=== PATIENT | male | born 2000 | race Caucasian/White ===

== ENCOUNTER 2023-11-02 12:13 | Emergency (ER) | payer BC, OTHER ==
[~2023-11-02] VITALS: Ht 190.5 cm; Wt 110.0 kg
[2023-11-02 13:10] LABS: Basophils # (auto) 0.1 10 ^3/uL (0-0.2); Basophils % (auto) 0.6 % (0.0-2.0); Eosinophils # (auto) 0.3 10 ^3/uL (0-0.8); Hematocrit 43.6 % (41.0-53.0); Hemoglobin 15.3 g/dL (13.5-17.5); Lymphocytes # (auto) 1.6 10 ^3/uL (0.4-5.4); Lymphocytes % (auto) 18.4 % (10.0-50.0); Mean Corpuscular Hemoglobin 30.6 pg (28.0-32.0); Mean Corpuscular Volume 87.3 fL (80.0-100.0); Monocytes # (auto) 0.7 10 ^3/uL (0-1.3); Monocytes % (auto) 7.7 % (0.0-12.0); Neutrophils % (auto) 70.3 % (37.0-80.0); Red Blood Cells 4.99 10^6/uL (4.5-5.90); Red Cell Distribution Width 13.3 % (11.8-14.3); White Blood Cell 8.5 10^3/uL (4.4-10.8)
[2023-11-02 13:18] LABS: Chloride 104 mmol/L (98-107); Potassium 4.2 mmol/L (3.5-5.1); Sodium 137 mmol/L (136-145)
[2023-11-02 13:19] LABS: Anion Gap 6 (5-15); Carbon Dioxide 27 mmol/L (20-30)
[2023-11-02 13:20] LABS: Calcium 9.8 mg/dL (8.5-10.1)
[2023-11-02 13:24] LABS: BUN/Creatinine Ratio 9.7 (10.0-20.0); Blood Urea Nitrogen 10 mg/dL (9-23); Glucose 102 mg/dL (74-106)
[2023-11-02 14:05] VITALS: PULSE 88; RESP 16; TEMP 98.1; O2SAT 97
[2023-11-02] MEDS: LORazepam 2MG/ML-1ML VIAL IM ONE (14:43)
[2023-11-02 14:57] VITALS: BP 127/74; PULSE 75; RESP 16; O2SAT 96
== END 2023-11-02 15:00 | disposition home or self-care (01) ==
LOC: ER 12:13
DX: R56.9 Unspecified convulsions (principal)
CPT/HCPCS: 36415; 70450; 80048; 85025; 96372; 99285; J2060